=== PATIENT | female | born 1970 | race Caucasian/White ===

== ENCOUNTER → 2017-12-06 | Outpatient (CLI) | payer BC ==
[~2017-12-06] MED LIST: BCPILLS PO; HYDR12.56 PO; KETO10TA PO; METO25TA3 PO; OXYC-57 PO
[2017-12-06 11:15] LABS: BASO % 0.6 %; BASO ABS # 0.05 K/uL (0-0.2); EOS % 3.7 %; EOS ABS # 0.33 K/uL (0-0.5); HEMATOCRIT 40.5 % (37-47); HEMOGLOBIN 13.6 g/dL (12.0-16.0); IG# 0.04 K/uL (0.00-0.02); LYMPH % 28.2 %; LYMPH ABS # 2.53 K/uL (1.2-3.4); MEAN CELL VOLUME 85.1 fL (80-100); MEAN CORPUSCULAR HEMOGLOBIN 28.6 pg (25-34); MEAN CORPUSCULAR HGB CONC 33.6 g/dl (32-36); MEAN PLATELET VOLUME 11.7 fL (7.4-10.4); MONO % 6.5 %; MONO ABS # 0.58 K/uL (0.11-0.59); NEUT % 60.6 %; NEUT ABS # 5.44 K/uL (1.4-6.5); PLATELET COUNT 292 K/uL (130-400); RED CELL DISTRIBUTION WIDTH CV 14.4 % (11.5-14.5); RED CELL DISTRIBUTION WIDTH SD 44.9 fL (36.4-46.3); WHITE BLOOD COUNT 8.97 K/uL (4.8-10.8)
[2017-12-06 12:15] LABS: BLOOD UREA NITROGEN 19 mg/dl (7-18); CALCIUM 9.1 mg/dl (8.5-10.1); CARBON DIOXIDE 26 mmol/L (21-32); CREATININE 0.88 mg/dl (0.60-1.20); GLUCOSE 88 mg/dl (70-99); POTASSIUM 4.4 mmol/L (3.5-5.1); SODIUM 136 mmol/L (136-145)
== END | disposition home or self-care (01) ==
LOC: C.LABBC 08:47
PROVIDERS: ATTEND Orthopaedic Surgery
DX: M25.511 Pain in right shoulder (principal)

== ENCOUNTER → 2017-12-14 | Day surgery (SDC) | payer BC ==
[2017-12-11 15:20] VITALS: Ht 166.4 cm; Wt 109.1 kg
[~2017-12-14] VITALS: Ht 166.4 cm; Wt 109.1 kg
[~2017-12-14] MED LIST changes: +ATROPINE SULFATE 0.1 MG/ML 5ML SYR IV PRN; -BCPILLS PO; +BUPIVACAINE 0.25% 30 ML VIAL ONE; +CEFAZOLIN 2000MG IV PUSH 15 ML IV SCH; +DEXAMETHASONE SOD INJ 4 MG/ML VIAL ONE; +EpHEDrine SULFATE INJ 50 MG/ML AMP ONE; +EpINEphrine INJ 1MG/ML AMP 1 MG/ML AMP ONE; +FENTANYL CITRATE INJ 50 MCG/1 ML 2 ML VIAL IV PRN; +FENTANYL CITRATE INJ 50 MCG/1 ML 2 ML VIAL ONE; +KETOROLAC TROMETHAMINE 30 MG/ML VIAL IV. PRN; +LABETALOL HCL IV 5 MG/ML 20ML IV PRN; +LIDOCAINE HCL 2% 2 ML VIAL (20MG/ML) ONE; +METHYLPREDNISOLONE ACETATE 80 MG/ML VIAL ONE; +MIDAZOLAM HCL 1 MG/ML 2ML VIAL ONE; +ONDANSETRON INJ 2 MG/ML 2 ML VIAL IV PRN; +ONDANSETRON INJ 2 MG/ML 2 ML VIAL ONE; +OXYCODONE/ACETAMINOPHEN 5-325 TAB PO PRN; +PHENYLEPHRINE HCL INJ 10 MG/ML VIAL ONE; +PROPOFOL IV EMULSION 10 MG/ML 20 ML VIAL IV ONE; +ROPIVACAINE 0.5% 5 MG/ML 30 ML VIAL ONE; +SODIUM CHLORIDE 0.9% 1000ML 1,000 ML IV SCH
[2017-12-14] MEDS: LACTATED RINGER'S 1000ML 1,000 ML IV SCH ×2 (11:33→14:40)
--- NOTE | 2017-12-14 11:33 | History & Physical Bridge Note ---
H&P Re-Evaluation Bridge Note: I have examined the patient, reviewed the History & Physical and in the interval since the performance of the History & Physical I have noted the following changes of clinical significance: No changes noted
--- NOTE | 2017-12-14 13:57 | [facility] Post Operative Brief Note ---
Immediate Operative Summary Operative Date Dec 14, 2017. Pre-Operative Diagnosis Right Shoulder Adhesive Capsulitis, External impingement, AC joint Arthritis Post-Operative Diagnosis External impingement, AC joint Arthritis Procedure(s) Performed Right Shoulder Arthroscopy, Acromioplasty, Distal Clavicle Resection Surgeon Dr. Anguiano Trimming Assembler Surgeon(s) Wilman Davis PA-C Estimated Blood Loss 5ml Findings Consistent with Post-Op Diagnosis Specimens None Anesthesia Type General Complication(s) none Disposition Disposition: Recovery Room / PACU
--- NOTE | 2017-12-14 14:11 | Discharge Instructions-SurgCtr ---
Discharge Instructions Date of Service Dec 14, 2017. Visit Reason for Visit: Right Shoulder Adhesive Capsulitis, Pain Discharge Discharge Diagnosis / Problem: SAME ABOVE Discharge Goals Goal(s): Decrease discomfort, Improve function Medications Stopped Medications Name(s): No blood thinners for over week Restart Stopped Medication(s): MAY RESTART 12/14/2017 Activity Recommendations Activity Limitations: as noted below Lifting Limitations: gradually increase as tolerated Exercise/Sports Limitations: gradually increase as tolerated Shower/Bathe: tomorrow Anesthesia . Post Anesthesia Instructions: If you have had General Anesthesia or IV Sedation: * Do not drive today. * Resume driving when surgeon permits. * Do not make important decisions or sign legal documents today. * Call surgeon for: 1. Temperature elevations greater than 101 degrees F. 2. Uncontrollable pain. 3. Excessive bleeding. 4. Persistent nausea and vomiting. 5. Medication intolerance (nausea, vomiting or rash). * For nausea and vomiting use only clear liquids such as: tea, soda, bouillon until nausea subsides, then gradually increase diet as tolerated. * If you have any concerns or questions, call your surgeon's office. If physician is unavailable and it is an emergency, call 911 or go to the nearest emergency room. . Instructions / Follow-Up Instructions / Follow-Up MEDICATIONS: * Resume previous medications unless instructed otherwise by your surgeon. * Always take pain medication on a full stomach or with food to avoid upset stomach. * Do not drink alcohol or drive while taking narcotics. * Ibuprofen or Tylenol may be taken if narcotic not needed. SPECIAL CARE INSTRUCTIONS: __ None _X_ Keep extremity elevated and iced x 48 hours; apply ice 20-30 minutes 8-10 times/day. May remove at night. _X_ Sling (WEAR FOR COMFORT ONLY) __24 hrs/day __ Remove at night __ Shoulder Immobilizer __ 24 hrs/day __ Remove at night _X_ Dressing __ Maintain until seen in office, may shower with plastic over site _X_ Remove dressings in 24-48 hours and then may shower _X_ Cover incisions with band-aids after showering __ Do not remove steri-strips Call physician if chills or temperature rises above 102 degrees or pain unrelieved by prescribed pain medications at . . Diet Recommendations Home Diet: no limitations Fluid Restriction: None Procedures Procedures Performed: Right Shoulder Arthroscopy, Acromioplasty, Distal Clavicle Resection Pending Studies Studies pending at discharge: no Work Instructions Return To Work: after follow-up (OR SOONER IF PAIN IS CONTROLLED ) Lifting Limitations: none Medical Emergencies . Who to Call and When: Medical Emergencies: If at any time you feel your situation is an emergency, please call 911 immediately. . Non-Emergent Contact Non-Emergency issues call your: Primary Care Provider Call Non-Emergent contact if: you have a fever, temperature is above 101.5 . . "Provider Documentation" section prepared by Clifford Davis. .
[2017-12-14 14:49] VITALS: TEMP 36.6
[2017-12-14 15:16] VITALS: BP 140/91; PULSE 77; O2SAT 98
--- NOTE | 2017-12-14 15:20 | Anesthesia Progress Nt - [facility] ---
Anesthesia Post Op Note Date & Time Dec 14, 2017 at 15:20 Vital Signs Pain Intensity: 0 Vital Signs Past 12 Hours Date Time Temp Pulse Resp B/P (MAP) Pulse Ox O2 Delivery O2 Flow Rate FiO2 12/14/17 15:16 77 16 140/91 (107) 98 Room Air 12/14/17 14:49 36.6 76 16 136/85 (102) 96 Room Air 12/14/17 14:46 134/90 12/14/17 14:43 77 20 93 12/14/17 14:43 79 20 12/14/17 14:41 143/89 12/14/17 14:38 80 18 12/14/17 14:38 81 18 92 12/14/17 14:36 148/100 12/14/17 14:35 36.5 78 18 148/100 94 Room Air 12/14/17 14:33 86 16 93 12/14/17 14:33 87 16 12/14/17 14:32 83 21 12/14/17 14:32 85 21 145/99 94 12/14/17 14:27 87 24 85 12/14/17 14:27 80 24 12/14/17 14:26 140/99 12/14/17 14:22 74 15 12/14/17 14:22 73 15 100 12/14/17 14:21 141/80 12/14/17 14:17 84 30 100 12/14/17 14:17 81 30 12/14/17 14:16 141/107 12/14/17 14:12 86 17 12/14/17 14:12 83 17 100 12/14/17 14:11 138/94 12/14/17 14:08 134/90 12/14/17 14:07 93 19 12/14/17 14:07 36.5 86 20 134/98 100 Mask 6 12/14/17 14:07 88 19 12/14/17 13:02 76 12/14/17 13:02 77 19 99 12/14/17 13:01 166/102 12/14/17 12:59 68 12/14/17 12:59 69 14 99 12/14/17 12:58 74 26 99 12/14/17 12:58 77 12/14/17 12:56 193/125 12/14/17 12:53 81 12/14/17 12:53 80 13 99 4/5/18 12:52 78 4//18 12:52 78 18 98 4/5/18 12:51 171/115 4/5/18 12:47 73 4/5/18 12:47 72 11 96 4/5/18 12:46 147/115 4/5/18 12:42 82 16 98 4/5/18 12:42 80 4/5/18 12:41 69 15 99 4/5/18 12:41 68 4/5/18 12:40 71 4/5/18 12:40 69 15 99 4/5/18 12:35 71 4//18 12:35 71 0 97 /5/18 12:30 84 //18 12:30 86 0 96 /18 12:25 69 //18 12:25 69 0 96 //18 12:20 72 4/18 12:20 71 0 98 //18 12:15 74 4//18 12:15 73 0 96 /18 12:10 75 4/18 12:10 74 0 96 //18 12:05 72 4//18 12:05 73 0 97 /18 12:00 79 /18 12:00 78 0 95 18 11:55 89 0 96 //18 11:55 87 //18 11:50 77 4//18 11:50 77 0 96 //18 11:45 72 0 96 //18 11:45 74 4/5/18 11:40 77 0 96 /5/18 11:40 75 4/5/18 11:20 36.7 102 16 133/91 (105) 100 Room Air Notes Mental Status: alert / awake / arousable, participated in evaluation Pt Amnestic to Procedure: Yes Nausea / Vomiting: adequately controlled Pain: adequately controlled Airway Patency, RR, SpO2: stable & adequate BP & HR: stable & adequate Hydration State: stable & adequate Anesthetic Complications: no major complications apparent
--- NOTE | 2017-12-14 19:07 | OPERATIVE REPORT ---
DATE OF OPERATION: 12/14/2017 PREOPERATIVE DIAGNOSIS: Severe external impingement of the right shoulder with possible adhesive capsulitis. POSTOPERATIVE DIAGNOSIS: Severe external impingement and acromioclavicular joint arthritis of the right shoulder. PROCEDURE: Right shoulder diagnostic arthroscopy with limited debridement, distal clavicle resection and acromioplasty. SURGEON: Marcos Anguiano DO. FIREWORKS MAKER: Clifford Davis PA-C, whose assistance was necessary for positioning the arm and helping with instrumentation. ANESTHESIA: General with a right interscalene nerve block. COMPLICATIONS: None. CONDITION: Stable to PACU. INDICATIONS: Ruth is a pleasant 47-year-old female who has been having a 4-month history of right shoulder pain. She denies any trauma. MRI and clinical examination were diagnostic for external impingement with possible adhesive capsulitis based on exam. After failing conservative treatment, she elected to undergo arthroscopy. OPERATION AND FINDINGS: On 12/14/2017, she arrived at [facility] for the above procedure. She was seen in preoperative holding area and the operative extremity was identified and signed. She was given a preoperative antibiotic and a right interscalene nerve block. She was taken back to the operating room, laid on the table in supine position and put under general anesthesia. She was then put into the beachchair position. The right shoulder was prepped and draped in sterile fashion. Time-out was done. The patient and operative extremity was properly identified. On preoperative physical examination, she had full range of motion without any signs of adhesive capsulitis. The scope was then placed in the posterior portal. Diagnostic arthroscopy showed no cartilage damage to the humeral head or the glenoid. There was significant fraying of the anterior labrum. There was also a small grade 4 chondral defect on the far anterior aspect of the glenoid. The remainder of the cartilage was intact. The biceps tendon was intact and went through a normal size biceps flori mechanism. The supraspinatus, infraspinatus, teres minor and subscapularis were all checked and intact. An anterior portal was made. A shaver was used to do a limited debridement of the intra-articular structures. The biceps tendon was pulled into the joint and no additional pathology was identified. The scope was then put into the subacromial space. A lateral portal was made. A shaver was used to do a complete subacromial and subdeltoid bursectomy. An ablator was used to tease the coracoacromial ligament off the undersurface of the acromion and a 5-0 lance was used to complete an acromioplasty of a Bigliani type 2 acromion. A shaver was used to remove any excess debris. The bursal side of the rotator cuff was examined extensively without evidence of tear. Attention was then made to the distal clavicle. Through the anterior portal, a shaver and ablator were used to skeletonize the distal clavicle. There was evidence of arthritis within the distal clavicle. A 5-0 lance was then used to resect the distal 5 mm from the clavicle. Complete resection was checked under direct visualization. A shaver was used to remove any excess debris. A final diagnostic arthroscopy showed no additional pathology. Arthroscopic instruments were removed from the shoulder. Portal sites were closed with 3-0 nylon. She was then placed in a soft dressing and a regular arm sling. She was then extubated, transferred to a [facility] and taken to the postanesthesia care in stable condition. She tolerated the procedure well. I attest to the content of the Intraoperative Record and any orders documented therein. Any exception s are noted below.
== END | disposition home or self-care (01) ==
LOC: X.SURG 11:00
PROVIDERS: ATTEND Orthopaedic Surgery
DX: M75.41 Impingement syndrome of right shoulder (principal); M19.011 Primary osteoarthritis, right shoulder; I10 Essential (primary) hypertension; E66.9 Obesity, unspecified; Z68.39 Body mass index [BMI] 39.0-39.9, adult; Z98.890 Other specified postprocedural states; Z82.49 Family history of ischemic heart disease and other diseases of the circulatory system; Z83.3 Family history of diabetes mellitus